=== PATIENT | female | born 1995 | race Caucasian/White ===

== ENCOUNTER → 2017-09-15 | Outpatient (CLI) | payer BC | LOC: M RAD 07:27 | DX: Z34.82 Encounter for supervision of other normal pregnancy, second trimester (principal); Z3A.19 19 weeks gestation of pregnancy | CPT/HCPCS: 76811 ==

== ENCOUNTER 2017-10-17 18:33 | Outpatient (CLI) | payer BC ==
[2017-10-17 21:00] LABS: AMORPHOUS SEDIMENT SMALL (NEGATIVE); APPEARANCE, URINE CLOUDY (CLEAR); BACTERIA, URINE AUTO NEGATIVE (NEGATIVE); BILIRUBIN, URINE AUTO NEGATIVE (NEGATIVE); BLOOD, URINE BLOOD NEGATIVE (NEGATIVE); COLOR, URINE YELLOW (YELLOW); GLUCOSE, URINE (UA) AUTO NEGATIVE (NEGATIVE); KETONE, URINE AUTO NEGATIVE (NEGATIVE); LEUKOCYTE ESTERASE, URINE AUTO NEGATIVE (NEGATIVE); MUCUS, URINE SMALL (NEGATIVE); NITRITE, URINE AUTO NEGATIVE (NEGATIVE); PROTEIN, URINE AUTO NEGATIVE (NEGATIVE); RBC, URINE AUTO 1 /HPF (0-3); SPECIFIC GRAVITY URINE AUTO 1.013 (1.002-1.035); SQUAMOUS EPITHELIAL CELL UR AU 0 /HPF (0-6); UROBILINOGEN, URINE AUTO 0.2 mg/dL (0.0-2.0); WBC, URINE AUTO 2 /HPF (0-3)
== END 2017-10-17 22:14 | disposition home or self-care (01) ==
LOC: M LDO 18:33
DX: O26.853 Spotting complicating pregnancy, third trimester (principal); O99.512 Diseases of the respiratory system complicating pregnancy, second trimester; J45.909 Unspecified asthma, uncomplicated; O99.332 Smoking (tobacco) complicating pregnancy, second trimester; Z3A.23 23 weeks gestation of pregnancy
CPT/HCPCS: 59025

== ENCOUNTER → 2017-10-25 | Outpatient (CLI) | payer BC | LOC: M RAD 14:42 | DX: Z36.89 Encounter for other specified antenatal screening (principal); Z3A.21 21 weeks gestation of pregnancy | CPT/HCPCS: 76816 ==

== ENCOUNTER → 2017-11-04 | Outpatient (CLI) | payer BC ==
[2017-11-04 13:32] LABS: HEMATOCRIT 32.8 % (36.0-47.0); HEMOGLOBIN 11.2 g/dl (12.0-15.5); MEAN CORPUSCULAR HEMOGLOBIN 32.2 pg (27.0-33.0); MEAN CORPUSCULAR HGB CONC 34.1 g/dl (32.0-36.5); MEAN CORPUSCULAR VOLUME 94.3 fl (80.0-96.0); PLATELET COUNT, AUTOMATED 319 10^3/uL (150-450); RED BLOOD COUNT 3.48 10^6/uL (4.00-5.40); RED CELL DISTRIBUTION WIDTH 12.9 % (11.5-14.5); WHITE BLOOD COUNT 14.9 10^3/uL (4.0-10.0)
[2017-11-04 14:37] LABS: GLUCOSE CHALLENGE TEST 1 HOUR 134 MG/DL (LESS THAN 140)
== END ==
LOC: M SMT 10:39
DX: Z36.89 Encounter for other specified antenatal screening (principal); Z3A.26 26 weeks gestation of pregnancy
CPT/HCPCS: 82950

== ENCOUNTER → 2017-11-16 | Outpatient (CLI) | payer BC ==
[2017-11-16 09:07] LABS: GLUCOSE, FASTING 77 MG/DL (LESS THAN 95)
[2017-11-16 10:55] LABS: 1 HR GLUCOSE 113 MG/DL (LESS THAN 180)
[2017-11-16 11:09] LABS: 2 HR GLUCOSE 115 MG/DL (LESS THAN 155)
[2017-11-16 12:24] LABS: 3 HR GLUCOSE 101 MG/DL (LESS THAN 140)
== END ==
LOC: M LAB 07:59
DX: R73.02 Impaired glucose tolerance (oral) (principal)
CPT/HCPCS: 82951

== ENCOUNTER → 2017-11-17 | Outpatient (CLI) | payer BC | LOC: M RAD 17:52 | DX: Z34.82 Encounter for supervision of other normal pregnancy, second trimester (principal) | CPT/HCPCS: 76816 ==

== ENCOUNTER → 2018-01-13 | Outpatient (REF) | payer BC | LOC: M LAB REF 17:10 | DX: Z34.83 Encounter for supervision of other normal pregnancy, third trimester (principal); Z3A.00 Weeks of gestation of pregnancy not specified ==

== ENCOUNTER 2018-01-23 05:22 | Inpatient (IN) | payer BC ==
[2018-01-23] MEDS: LACTATED RINGER'S 1000 ML IV ×2 (06:42→13:29)
[2018-01-23] MEDS: LR 1,000 ML IV (06:43)
[2018-01-23 06:48] LABS: HEMATOCRIT 48.9 % (36.0-47.0); HEMOGLOBIN 17.1 g/dl (12.0-15.5); MEAN CORPUSCULAR HEMOGLOBIN 31.5 pg (27.0-33.0); MEAN CORPUSCULAR VOLUME 90.1 fl (80.0-96.0); PLATELET COUNT, AUTOMATED 179 10^3/uL (150-450); RED BLOOD COUNT 5.43 10^6/uL (4.00-5.40); RED CELL DISTRIBUTION WIDTH 13.3 % (11.5-14.5); WHITE BLOOD COUNT 9.8 10^3/uL (4.0-10.0)
[2018-01-23] MEDS ORDERED: FENTANYL 2MCG/ML ROPIVACAINE 0.2% IN 0.9% NACL 200ML IVBAG As Ordered (07:02)
[2018-01-23] MEDS ORDERED: FENTANYL/ROPIVACAINE/NACL BAG 200 ML EPIDURAL (08:30)
[2018-01-23] MEDS ORDERED: NALOXONE INJ 0.4 MG/1 ML VIAL (J2310) IV (08:30)
[2018-01-23] MEDS ORDERED: REFRIGERATOR IV KEYS XX (08:30)
[2018-01-23] MEDS ORDERED: diphenhydrAMINE INJ 50MG/ML VIAL (J1200) IV (08:30)
[2018-01-23] MEDS ORDERED: EPIDURAL COMMENT XX (08:30)
[2018-01-23] MEDS ORDERED: ONDANSETRON 4MG/2ML VIAL (J2405) IV (08:30)
[2018-01-23] MEDS ORDERED: EPIDURAL/PCA KEYS XX (08:30)
[2018-01-23] MEDS: ePHEDrine SULFATE 25 MG/5 ML(5MG/ML) SYRINGE IV (13:25)
[2018-01-23] MEDS ORDERED: LR 1,000 ML IV (13:33)
[2018-01-23] MEDS: OXYTOCIN DRIP 30 UNITS in APPROPRIATE DILUENT 1 EA IV ×2 (14:02→17:44)
[2018-01-23] MEDS ORDERED: IBUPROFEN 800 MG TAB PO (17:45)
[2018-01-23] MEDS ORDERED: DOCUSATE SODIUM 100 MG CAP PO (17:45)
[2018-01-23] MEDS ORDERED: MEASLES,MUMPS,RUBELLA VACCINE INJ (MMR-II) (90707) SC (17:45)
[2018-01-23] MEDS ORDERED: ACETAMINOPHEN 500 MG TAB PO (17:45)
[2018-01-23] MEDS ORDERED: METHYLERGONOVINE MALEATE 0.2 MG TAB PO (17:45)
[2018-01-23] MEDS ORDERED: DIBUCAINE 1% OINTMENT 30GM TOP (17:45)
[2018-01-23] MEDS ORDERED: LIDOCAINE 1% MDV 20ML VIAL As Ordered (23:40)
[2018-01-24] MEDS: PRENATAL VITAMINS CHEWABLE TABLET PO (09:00)
[2018-01-25] MEDS: RHOGAM 300 MCG (1500 IU) INJ (J2790) IM (07:37)
[2018-01-25] MEDS: PRENATAL VITAMINS CHEWABLE TABLET PO (09:00)
== END 2018-01-25 10:25 | disposition home or self-care (01) | DRG 560 ==
LOC: M LDO 05:22 → M LDI 06:18 → M OBS 20:08
PROVIDERS: Advanced Practice Midwife
PROC: 10E0XZZ Delivery of Products of Conception, External Approach (ICD-10-PCS; principal; 2018-01-23)
DX: O99.334 Smoking (tobacco) complicating childbirth (principal); F17.210 Nicotine dependence, cigarettes, uncomplicated; O69.81X0 Labor and delivery complicated by cord around neck, without compression, not applicable or unspecified; Z3A.37 37 weeks gestation of pregnancy; Z37.0 Single live birth